=== PATIENT | female | born 1985 | race Caucasian/White ===

== ENCOUNTER → 2016-09-10 | Outpatient (CLI) | payer MEDICAID ==
--- NOTE | 2016-09-10 13:57 | DX ---
Chest, Two Views - September 10, 2016, at 1056 hours History: Hue's granulomatosis.. Comparison: None available. Findings: Cardiac silhouette is within normal range. Patchy opacity in the lingula, which may represe nt pneumonia or scarring. No pleural effusion or pneumothorax. Impression: 1. Lingular opacity representing pneumonia versus pleuroparenchymal scarring. 2. Consider CT chest imaging if clinically indicated.
== END ==
LOC: BMCIMAGING 10:54
PROVIDERS: ATTEND Internal Medicine Pulmonary Disease
DX: R91.8 Other nonspecific abnormal finding of lung field (principal); M31.30 Wegener's granulomatosis without renal involvement; R53.83 Other fatigue
CPT/HCPCS: 86255-90